=== PATIENT | female | born 1945 | race Caucasian/White ===

== ENCOUNTER 2021-06-01 10:24 | Inpatient (IN) ==
[~2021-06-01 10:24] MED LIST: CLORAZEPATE 3.75 MG TABLET PO PRN; DEXTROSE 10% 250 ML BAG IV PRN; GLUCAGON 1 MG VIAL IM PRN; MORPHINE 2 MG/1 ML SYRINGE IV PRN; NITROGLYCERIN SL 0.4 MG TABLET SL PRN
[2021-06-01] MEDS ORDERED: LACTATED RINGERS 1,000 ML IV SCH (11:00)
[2021-06-01 13:12] LABS: Basophils % 0.7 % (0.0-0.8); Eosinophils # 0.2 10*3/uL (0.0-0.87); Eosinophils % 3.8 % (0.00-10.9); Hematocrit 36.6 VOL% (35.7-47.0); Hemoglobin 11.8 GM/DL (12.0-16.0); Immature Granulocytes % 0.3 %; Immature Granulocytes Absolute 0.02 #; Lymphocytes # 1.1 10*3/uL (1.4-4.0); Mean Corpuscular HGB Conc 32.2 GM/DL (32-36); Mean Corpuscular Volume 98.7 FL (87-102); Mean Platelet Volume 10.2 FL (9.6-12.0); Monocytes % 7.9 % (1.7-12.7); Neutrophils % 69.3 % (38.7-73.9); Platelet Count 185 T/CUMM (130-400); Red Blood Count 3.71 MC/CUMM (3.8-5.5); Red Cell Distribution Width 13.1 % (9.3-17.3); White Blood Count 5.8 T/CUMM (4-12)
[2021-06-01 13:32] LABS: Albumin 3.3 G/DL (3.4-5.0); Bilirubin,Total 0.4 MG/DL (0.20-1.00); Calcium 9.2 MG/DL (8.5-10.1); Potassium 4.5 MMOL/L (3.5-5.1); Total Protein 7.1 G/DL (6.4-8.2)
[2021-06-01] MEDS: CHLORHEXIDINE 0.12% ORAL RINSE 60 ML BOTTLE SWISH/SPIT SCH ×2 (14:05→21:18)
[2021-06-01] MEDS ORDERED: SODIUM CHLORIDE 0.9% 1,000 ML IV SCH (15:00)
[2021-06-01 16:34] LABS: Arterial Base Excess iSTAT 3 MMOL/L (-2.5-2.5); Arterial Bicarbonate iSTAT 28.2 MMOL/L (20-26); Arterial O2 Saturation iSTAT 96 % (95-100); Arterial PCO2 iSTAT 45 MM HG (35-48); Arterial PO2 iSTAT 80 MM HG (80-95); Arterial Total CO2 iSTAT 30 MMO/L (23-27); Arterial pH iSTAT 7.403 (7.35-7.45)
[2021-06-01] MEDS: CHLORHEXIDINE 4% SOLN 118 ML BOTTLE TOP SCH ×2 (16:48→21:20)
[2021-06-02] MEDS: CHLORHEXIDINE 4% SOLN 118 ML BOTTLE TOP SCH (04:07)
[2021-06-02] MEDS ORDERED: PAPAVERINE 60 MG/2 ML VIAL ONE (04:19)
[2021-06-02] MEDS ORDERED: VANCOMYCIN 1,000 MG VIAL ONE (04:19)
[2021-06-02] MEDS ORDERED: VANCOMYCIN 500 MG VIAL ONE (04:19)
[2021-06-02] MEDS ORDERED: VANCOMYCIN INJ 1,000 MG in SODIUM CHLORIDE 0.9% 250 ML IV ONE (05:00)
[2021-06-02] MEDS ORDERED: SODIUM CHLORIDE 0.9% 1,000 ML IV ONE (05:28)
[2021-06-02] MEDS ORDERED: LACTATED RINGERS 1,000 ML IV ONE (05:28)
[2021-06-02] MEDS ORDERED: AMINOCAPROIC ACID 5,000 MG/20 ML VIAL ONE (05:28)
[2021-06-02] MEDS ORDERED: CALCIUM CHLORIDE 1,000 MG/10 ML VIAL IV ONE (05:28)
[2021-06-02] MEDS ORDERED: VECURONIUM 10 MG VIAL IV ONE ×3 (05:28→10:26)
[2021-06-02] MEDS ORDERED: MIDAZOLAM 10 MG/2 ML VIAL ONE ×4 (05:28→10:26)
[2021-06-02] MEDS ORDERED: ETOMIDATE 40 MG/20 ML VIAL IV ONE (05:28)
[2021-06-02] MEDS ORDERED: LIDOCAINE 2% 5 ML VIAL ONE ×3 (05:28→10:43)
[2021-06-02] MEDS ORDERED: DIAZEPAM 5 MG TABLET PO ONE (05:30)
[2021-06-02] MEDS ORDERED: FAMOTIDINE 20 MG TABLET PO ONE (05:30)
[2021-06-02] MEDS ORDERED: SUFentanil 250 MCG/5 ML AMP ONE ×2 (05:58)
[2021-06-02] MEDS ORDERED: SODIUM CHLORIDE 0.9% 250 ML IV ONE (06:08)
[2021-06-02] MEDS ORDERED: SODIUM CHLORIDE 0.9% 0 ML IV ONE (06:08)
[2021-06-02] MEDS ORDERED: HEPARIN/NACL 0.9% 2 UNITS/ML 1,000 UNIT/500 ML BAG IV ONE (06:30)
[2021-06-02] MEDS ORDERED: PHENYLEPHRINE DRIP 20 MG/250 ML PREMIX IV ONE (06:30)
[2021-06-02 07:44] LABS: ABG Base Excess 1.7 MMOL/L (-2.5-2.5); ABG PCO2 36.5 MM HG (35-48); ABG PH 7.452 (7.35-7.45); ABG TCO2 22.9 MMOL/L (23-27); Glucose Heart Surgery 109 MG/DL (74-106); Hematocrit Heart Surgery 32.6 PERCENT (37-47); Hemoglobin Heart Surgery 10.6 G/DL (12.0-16.0); Ionized Calcium Arterial 1.15 MMOL/L (1.21-1.46); PCO2 Patient Temp Arterial 36.5 MMHG; PH Patient Temp Arterial 7.452; Patient Temperature 37 CELCIUS; Potassium Heart/CVR 3.7 MMOL/L (3.5-5.1); Sodium Heart/CVR 143 MMOL/L (135-145)
[2021-06-02] MEDS ORDERED: ePHEDrine 50 MG/ML VIAL ONE (08:06)
[2021-06-02 08:55] LABS: Bacteria,Urine Occasional /HPF (Few); Mucus,Urine Occasional /LPF (Occasional); RBC,Urine 1 /HPF (0-4)
[2021-06-02 08:56] LABS: Bilirubin,Urine Negative (Negative); Blood, Urine Negative (Negative); Glucose,Urine (UA) Negative (Negative); Ketones,Urine Negative (Negative); Nitrite,Urine Negative (Negative); Protein,Urine Negative (Negative); Urine Appearance Clear (Clear); Urine Color Light Yellow (Yellow); Urine Specific Gravity 1.015 (1.001-1.035); Urine Urobilinogen 0.2 eU/dL (<2.0)
[2021-06-02 09:16] LABS: Hematocrit Heart Surgery 20.1 PERCENT (37-47); PCO2 Patient Temp Venous 30.9 MM HG; PH Patient Temp Venous 7.532; PO2 Patient Temp Venous 32.7 MM HG; Potassium Heart/CVR 4.7 MMOL/L (3.5-5.1); VBG Base Excess 3.5 MEQ/L (0-4); VBG HCO3 27.4 MEQ/L (24-28); VBG Oxygen Saturation 78.1 %; VBG PCO2 35.7 MMHG (41-51); VBG PH 7.487; VBG PO2 40.3 MMHG (17-40); VBG Total CO2 25.7 MMOL/L
[2021-06-02 09:19] LABS: Hemoglobin Heart Surgery 6.4 G/DL (12.0-16.0)
[2021-06-02 09:45] LABS: Hematocrit Heart Surgery 28.2 PERCENT (37-47); Hemoglobin Heart Surgery 9.1 G/DL (12.0-16.0); PCO2 Patient Temp Venous 29.8 MM HG; PH Patient Temp Venous 7.503; PO2 Patient Temp Venous 39.5 MM HG; Potassium Heart/CVR 4.7 MMOL/L (3.5-5.1); VBG Base Excess 0.8 MEQ/L (0-4); VBG Oxygen Saturation 87.1 %; VBG PCO2 34.4 MMHG (41-51); VBG PH 7.458; VBG PO2 48.5 MMHG (17-40); VBG Total CO2 22.4 MMOL/L
[2021-06-02] MEDS ORDERED: NITROGLYCERIN DRIP 50 MG/250 ML BOTTLE IV ONE ×2 (09:53→12:11)
[2021-06-02] MEDS ORDERED: POTASSIUM CHLORIDE RIDER 20 MEQ/100 ML PREMIX IV ONE (10:06)
[2021-06-02] MEDS ORDERED: NITROPRUSSIDE 50 MG/2 ML VIAL ONE (10:06)
[2021-06-02] MEDS ORDERED: PHENYLEPHRINE DRIP 40 MG/250 ML PREMIX IV ONE (10:06)
[2021-06-02 10:37] LABS: ABG Base Excess 0.4 MMOL/L (-2.5-2.5); ABG HCO3 24.8 MMOL/L (20-26); ABG PCO2 31.6 MM HG (35-48); ABG PH 7.477 (7.35-7.45); Glucose Heart Surgery 231 MG/DL (74-106); Hematocrit Heart Surgery 32.1 PERCENT (37-47); Hemoglobin Heart Surgery 10.4 G/DL (12.0-16.0); Ionized Calcium Arterial 1.23 MMOL/L (1.21-1.46); PCO2 Patient Temp Arterial 31.6 MMHG; PH Patient Temp Arterial 7.477; Patient Temperature 37 CELCIUS; Potassium Heart/CVR 4.4 MMOL/L (3.5-5.1); Sodium Heart/CVR 134 MMOL/L (135-145)
[2021-06-02] MEDS ORDERED: PROTAMINE SULFATE 250 MG/25 ML VIAL IV ONE (10:43)
[2021-06-02] MEDS ORDERED: methylPREDNISolone SOD SUC 1,000 MG/8 ML VIAL ONE (10:43)
[2021-06-02] MEDS ORDERED: MANNITOL 100 GM/500 ML BAG IV ONE (10:43)
[2021-06-02] MEDS ORDERED: ALBUMIN 25% 25 GM/100 ML VIAL IV ONE (10:43)
[2021-06-02] MEDS ORDERED: DEXTROSE 5% KCL 20 MEQ 20 MEQ/1,000 ML BAG IV ONE (10:43)
[2021-06-02] MEDS ORDERED: MAGNESIUM SULFATE 5 GM/10 ML VIAL IV ONE (10:43)
[2021-06-02] MEDS ORDERED: HEPARIN 10,000 UNIT/10 ML VIAL ONE (10:44)
[2021-06-02] MEDS ORDERED: SODIUM BICARBONATE 50 MEQ/50 ML VIAL IV ONE (10:44)
[2021-06-02] MEDS ORDERED: FUROSEMIDE 20 MG/2 ML VIAL ONE (10:44)
[2021-06-02] MEDS ORDERED: SEVOFLURANE 1 UNIT/15 MINUTE INH ONE (10:45)
[2021-06-02] MEDS ORDERED: SODIUM CHLORIDE 0.9% 200 ML IV ONE (10:46)
[2021-06-02] MEDS ORDERED: GLYCOPYRROLATE 0.4 MG/2 ML VIAL ONE (11:25)
[2021-06-02] MEDS ORDERED: ONDANSETRON 4 MG/2 ML VIAL IV PRN (11:28)
[2021-06-02] MEDS ORDERED: ACETAMINOPHEN 650 MG SUPP RECTAL PRN (11:28)
[2021-06-02] MEDS ORDERED: DEXTROSE 10% 250 ML BAG IV PRN ×3 (11:28→18:55)
[2021-06-02] MEDS ORDERED: POTASSIUM CHLORIDE RIDER 10 MEQ/100 ML PREMIX IV PRN (11:28)
[2021-06-02] MEDS ORDERED: LACTATED RINGERS 250 ML IV PRN (11:28)
[2021-06-02] MEDS ORDERED: MIDAZOLAM 10 MG/2 ML VIAL IV PRN (11:28)
[2021-06-02] MEDS ORDERED: INSULIN REGULAR 100 UNIT/ML IV PRN (11:28)
[2021-06-02] MEDS ORDERED: CALCIUM CHLORIDE 1,000 MG/10 ML SYRINGE IV PRN (11:28)
[2021-06-02] MEDS ORDERED: MAGNESIUM SULF RIDER 2 GM/50 ML PREMIX IV PRN (11:28)
[2021-06-02] MEDS ORDERED: INSULIN REGULAR 100 UNIT/ML IV ONE (11:28)
[2021-06-02] MEDS ORDERED: VECURONIUM 10 MG VIAL IV PRN ×2 (11:28)
[2021-06-02] MEDS ORDERED: MAGNESIUM SULF RIDER 4 GM/100 ML PREMIX IV PRN (11:28)
[2021-06-02] MEDS ORDERED: MIDAZOLAM 2 MG/2 ML VIAL IV PRN (11:28)
[2021-06-02] MEDS ORDERED: NITROPRUSSIDE 100 MG in DEXTROSE 5% 250 ML IV PRN (11:28)
[2021-06-02] MEDS ORDERED: INSULIN REGULAR DRIP 100 ML IV SCH (11:30)
[2021-06-02 11:42] LABS: ABG Base Excess -0.2 MMOL/L (-2.5-2.5); ABG HCO3 24.3 MMOL/L (20-26); ABG Oxygen Saturation 98.3 % (95-100); ABG PCO2 36.8 MM HG (35-48); ABG PH 7.421 (7.35-7.45); ABG TCO2 21.1 MMOL/L (23-27); Glucose Heart Surgery 190 MG/DL (74-106); Hematocrit Heart Surgery 37.2 PERCENT (37-47); Hemoglobin Heart Surgery 12.1 G/DL (12.0-16.0); Potassium Heart/CVR 3.6 MMOL/L (3.5-5.1)
[2021-06-02] MEDS: LACTATED RINGERS 1,000 ML IV PRN ×4 (11:45→15:31)
[2021-06-02 11:46] LABS: Basophils % 0.4 % (0.0-0.8); Eosinophils # 0.1 10*3/uL (0.0-0.87); Eosinophils % 1.3 % (0.00-10.9); Hematocrit 33.1 VOL% (35.7-47.0); Hemoglobin 11.4 GM/DL (12.0-16.0); Immature Granulocytes % 0.4 %; Immature Granulocytes Absolute 0.03 #; Lymphocytes # 0.7 10*3/uL (1.4-4.0); Lymphocytes % 9.7 % (21.3-54.2); Mean Corpuscular HGB Conc 34.4 GM/DL (32-36); Mean Corpuscular Volume 91.7 FL (87-102); Mean Platelet Volume 10.6 FL (9.6-12.0); Monocytes % 3.9 % (1.7-12.7); Neutrophils % 84.3 % (38.7-73.9); Platelet Count 127 T/CUMM (130-400); Red Blood Count 3.61 MC/CUMM (3.8-5.5); Red Cell Distribution Width 14.6 % (9.3-17.3); White Blood Count 6.9 T/CUMM (4-12)
[2021-06-02 11:54] LABS: INR 1.1; PT Patient Result 12.4 SECS (10.5-12.0); Partial Thromboplastin Time 28.2 SECS (23.8-32.1)
[2021-06-02] MEDS: SODIUM CHLORIDE 0.45% 1,000 ML IV SCH ×2 (12:01)
[2021-06-02] MEDS: POTASSIUM CHLORIDE RIDER 20 MEQ/100 ML PREMIX IV PRN (12:02)
[2021-06-02 12:06] LABS: CKMB % 8.2 %
[2021-06-02] MEDS: PHENYLEPHRINE DRIP 40 MG/250 ML PREMIX IV PRN (12:10)
[2021-06-02 12:12] LABS: Albumin 2.9 G/DL (3.4-5.0); Bilirubin,Total 1.5 MG/DL (0.20-1.00); Calcium 9.1 MG/DL (8.5-10.1); Osmolality,Calculated 284.7 MOS/KG (273-304); Potassium 3.6 MMOL/L (3.5-5.1); Total Protein 5.7 G/DL (6.4-8.2)
[2021-06-02 12:17] LABS: High Sensitive Troponin I* 4209.6 ng/L (0-54)
[2021-06-02] MEDS: NITROGLYCERIN DRIP 50 MG/250 ML BOTTLE IV PRN (12:30)
[2021-06-02 13:30] LABS: VBG Base Excess -0.4 MEQ/L (0-4); VBG HCO3 23.3 MEQ/L (24-28); VBG Oxygen Saturation 58.5 %; VBG PCO2 42.2 MMHG (41-51); VBG PH 7.377; VBG PO2 32.7 MMHG (17-40); VBG Total CO2 22.3 MMOL/L
[2021-06-02] MEDS: CHLORHEXIDINE 0.12% ORAL RINSE 60 ML BOTTLE SWISH/SPIT SCH ×2 (14:01→21:34)
[2021-06-02 14:11] LABS: ABG Base Excess -2.2 MMOL/L (-2.5-2.5); ABG HCO3 21.2 MMOL/L (20-26); ABG Oxygen Saturation 98.2 % (95-100); ABG PH 7.439 (7.35-7.45); ABG PO2 132.1 MM HG (80-95); ABG TCO2 22.2 MMOL/L (23-27); Glucose Heart Surgery 150 MG/DL (74-106)
[2021-06-02] MEDS: ALBUMIN 5% 12.5 GM/250 ML VIAL IV PRN ×3 (15:30→17:07)
[2021-06-02 16:36] LABS: ABG Base Excess -1.6 MMOL/L (-2.5-2.5); ABG HCO3 22.1 MMOL/L (20-26); ABG Oxygen Saturation 97.9 % (95-100); ABG PCO2 33.4 MM HG (35-48); ABG PH 7.438 (7.35-7.45); ABG PO2 130.5 MM HG (80-95); ABG TCO2 23.1 MMOL/L (23-27); Glucose Heart Surgery 167 MG/DL (74-106); Hemoglobin Heart Surgery 10.5 G/DL (12.0-16.0)
[2021-06-02] MEDS: DOBUTamine 500 MG/250 ML PREMIX IV SCH (18:07)
[2021-06-02 18:25] LABS: ABG Base Excess -1.3 MMOL/L (-2.5-2.5); ABG HCO3 23.3 MMOL/L (20-26); ABG Oxygen Saturation 96.5 % (95-100); ABG PCO2 38.3 MM HG (35-48); ABG PH 7.392 (7.35-7.45); ABG PO2 85.8 MM HG (80-95); ABG TCO2 21.1 MMOL/L (23-27); Glucose Heart Surgery 212 MG/DL (74-106); Hematocrit Heart Surgery 32.4 PERCENT (37-47); Hemoglobin Heart Surgery 10.5 G/DL (12.0-16.0); Potassium Heart/CVR 4.3 MMOL/L (3.5-5.1)
[2021-06-02] MEDS ORDERED: GLUCAGON 1 MG VIAL IM PRN (18:50)
[2021-06-02] MEDS: INSULIN REGULAR 100 UNIT/ML SUBCUT SCH ×2 (19:04→21:59)
[2021-06-02 20:08] LABS: CKMB % 9.5 %
[2021-06-02 20:17] LABS: High Sensitive Troponin I* 12060.8 ng/L (0-54)
[2021-06-02] MEDS: VANCOMYCIN INJ 500 MG in SODIUM CHLORIDE 0.9% 250 ML IV SCH (22:56)
[2021-06-02] MEDS: MORPHINE 10 MG/1 ML VIAL IV PRN (23:38)
[2021-06-03] MEDS ORDERED: FUROSEMIDE 40 MG/4 ML VIAL IV ONE ×4 (00:13→23:55)
[2021-06-03] MEDS: LACTATED RINGERS 1,000 ML IV PRN (02:01)
[2021-06-03 02:09] LABS: ABG Base Excess -3.1 MMOL/L (-2.5-2.5); ABG HCO3 21.8 MMOL/L (20-26); ABG PCO2 40.1 MM HG (35-48); ABG PH 7.352 (7.35-7.45); ABG PO2 85.5 MM HG (80-95); ABG TCO2 20.3 MMOL/L (23-27); Glucose Heart Surgery 215 MG/DL (74-106); Hematocrit Heart Surgery 31.6 PERCENT (37-47); Hemoglobin Heart Surgery 10.2 G/DL (12.0-16.0); Potassium Heart/CVR 3.7 MMOL/L (3.5-5.1)
[2021-06-03] MEDS: POTASSIUM CHLORIDE RIDER 20 MEQ/100 ML PREMIX IV PRN ×3 (02:21→04:19)
[2021-06-03] MEDS: INSULIN REGULAR 100 UNIT/ML SUBCUT SCH ×6 (02:26→22:52)
[2021-06-03 04:10] LABS: ABG Base Excess -3.9 MMOL/L (-2.5-2.5); ABG HCO3 21.1 MMOL/L (20-26); ABG Oxygen Saturation 96.7 % (95-100); ABG PCO2 39.5 MM HG (35-48); ABG PH 7.343 (7.35-7.45); ABG PO2 91.6 MM HG (80-95); ABG TCO2 19.6 MMOL/L (23-27); Glucose Heart Surgery 205 MG/DL (74-106); Hematocrit Heart Surgery 31.3 PERCENT (37-47); Hemoglobin Heart Surgery 10.1 G/DL (12.0-16.0); Potassium Heart/CVR 4.3 MMOL/L (3.5-5.1)
[2021-06-03 04:18] LABS: Basophils % 0.1 % (0.0-0.8); Hematocrit 29.4 VOL% (35.7-47.0); Hemoglobin 9.8 GM/DL (12.0-16.0); Immature Granulocytes % 0.3 %; Immature Granulocytes Absolute 0.03 #; Lymphocytes # 0.5 10*3/uL (1.4-4.0); Lymphocytes % 5.5 % (21.3-54.2); Mean Corpuscular HGB Conc 33.3 GM/DL (32-36); Mean Corpuscular Volume 93.3 FL (87-102); Mean Platelet Volume 11.1 FL (9.6-12.0); Monocytes % 2.6 % (1.7-12.7); Neutrophils % 91.5 % (38.7-73.9); Platelet Count 112 T/CUMM (130-400); Red Blood Count 3.15 MC/CUMM (3.8-5.5); Red Cell Distribution Width 15.6 % (9.3-17.3); White Blood Count 8.7 T/CUMM (4-12)
[2021-06-03 04:35] LABS: Albumin 3.2 G/DL (3.4-5.0); Bilirubin,Direct 0.14 MG/DL (0.0-0.20); Bilirubin,Total 0.8 MG/DL (0.20-1.00); Calcium 7.9 MG/DL (8.5-10.1); Osmolality,Calculated 289.4 MOS/KG (273-304); Potassium 4.5 MMOL/L (3.5-5.1); Total Protein 5.3 G/DL (6.4-8.2)
[2021-06-03 04:40] LABS: Band Neutrophils 1 % (0-10); Hypochromia 1+; Lymphocytes 6 % (20-55); Microcytosis 1+; Segmented Neutrophils 92 % (50-85); Total Cells Counted 100
[2021-06-03 04:50] LABS: CKMB % 11.8 %
[2021-06-03 04:53] LABS: High Sensitive Troponin I* 39804.4 ng/L (0-54)
[2021-06-03 06:17] LABS: ABG Base Excess -5.8 MMOL/L (-2.5-2.5); ABG HCO3 19.6 MMOL/L (20-26); ABG Oxygen Saturation 96.1 % (95-100); ABG PCO2 44.6 MM HG (35-48); ABG PH 7.278 (7.35-7.45); ABG PO2 92.8 MM HG (80-95); ABG TCO2 19.2 MMOL/L (23-27); Glucose Heart Surgery 185 MG/DL (74-106); Hematocrit Heart Surgery 31.6 PERCENT (37-47); Hemoglobin Heart Surgery 10.2 G/DL (12.0-16.0); Potassium Heart/CVR 4.5 MMOL/L (3.5-5.1)
[2021-06-03 07:31] LABS: ABG Base Excess -5.9 MMOL/L (-2.5-2.5); ABG HCO3 19.5 MMOL/L (20-26); ABG Oxygen Saturation 96.8 % (95-100); ABG PCO2 44.2 MM HG (35-48); ABG PH 7.278 (7.35-7.45); ABG PO2 98.3 MM HG (80-95); Glucose Heart Surgery 175 MG/DL (74-106); Hematocrit Heart Surgery 31.9 PERCENT (37-47); Hemoglobin Heart Surgery 10.3 G/DL (12.0-16.0); Potassium Heart/CVR 4.3 MMOL/L (3.5-5.1)
[2021-06-03] MEDS: MORPHINE 10 MG/1 ML VIAL IV PRN ×2 (07:46→23:16)
[2021-06-03] MEDS: CHLORHEXIDINE 0.12% ORAL RINSE 60 ML BOTTLE SWISH/SPIT SCH (09:11)
[2021-06-03] MEDS: SODIUM CHLORIDE 0.45% 1,000 ML IV SCH ×2 (10:46)
[2021-06-03] MEDS: VANCOMYCIN INJ 500 MG in SODIUM CHLORIDE 0.9% 250 ML IV SCH (10:47)
[2021-06-03] MEDS ORDERED: oxyCODONE/ACETAMINOPHEN 5-325 MG TABLET PO PRN (10:49)
[2021-06-03] MEDS: VANCOMYCIN INJ 500 MG in SODIUM CHLORIDE 0.9% 100 ML IV SCH (11:16)
[2021-06-03] MEDS: NITROGLYCERIN DRIP 50 MG/250 ML BOTTLE IV PRN (12:16)
[2021-06-03] MEDS: METOPROLOL SUCCINATE XL 25 MG TABLET PO SCH (13:52)
[2021-06-03] MEDS: ISOSORBIDE MONONITRATE 30 MG TABLET PO SCH (13:52)
[2021-06-03 14:17] LABS: CKMB % 11.7 %
[2021-06-03 14:28] LABS: High Sensitive Troponin I* 66692.6 ng/L (0-54)
[2021-06-03 20:11] LABS: ABG Base Excess -7.1 MMOL/L (-2.5-2.5); ABG HCO3 18.5 MMOL/L (20-26); ABG Oxygen Saturation 85.1 % (95-100); ABG PO2 61.3 MM HG (80-95); ABG TCO2 22.9 MMOL/L (23-27); Glucose Heart Surgery 176 MG/DL (74-106); Hematocrit Heart Surgery 32.8 PERCENT (37-47); Hemoglobin Heart Surgery 10.6 G/DL (12.0-16.0)
[2021-06-03 20:14] LABS: ABG PH 7.113 (7.35-7.45)
[2021-06-03 20:15] LABS: ABG PCO2 75.3 MM HG (35-48)
[2021-06-03] MEDS ORDERED: FUROSEMIDE 100 MG/10 ML VIAL IV ONE (20:31)
[2021-06-03] MEDS ORDERED: ETOMIDATE 20 MG/10 ML VIAL IV ONE ×2 (20:35→20:42)
[2021-06-03] MEDS ORDERED: ROCURONIUM 100 MG/10 ML VIAL IV ONE (20:36)
[2021-06-03] MEDS ORDERED: VECURONIUM 10 MG VIAL IV ONE (20:43)
[2021-06-03] MEDS ORDERED: EPINEPHrine 1 MG/10 ML SYRINGE ONE (20:53)
[2021-06-03] MEDS ORDERED: SODIUM BICARBONATE 50 MEQ/50 ML SYRINGE IV ONE (21:01)
[2021-06-03 21:26] LABS: ABG Base Excess -2.9 MMOL/L (-2.5-2.5); ABG Oxygen Saturation 99.7 % (95-100); ABG PH 7.232 (7.35-7.45); ABG TCO2 23.8 MMOL/L (23-27)
[2021-06-03 21:35] LABS: Basophils % 0.1 % (0.0-0.8); Hematocrit 31.6 VOL% (35.7-47.0); Hemoglobin 10.1 GM/DL (12.0-16.0); Immature Granulocytes % 0.5 %; Immature Granulocytes Absolute 0.06 #; Lymphocytes # 0.8 10*3/uL (1.4-4.0); Lymphocytes % 6.2 % (21.3-54.2); Mean Corpuscular Volume 97.5 FL (87-102); Mean Platelet Volume 11.3 FL (9.6-12.0); Monocytes % 8.5 % (1.7-12.7); Neutrophils % 84.7 % (38.7-73.9); Platelet Count 127 T/CUMM (130-400); Red Blood Count 3.24 MC/CUMM (3.8-5.5); Red Cell Distribution Width 15.4 % (9.3-17.3); White Blood Count 12.8 T/CUMM (4-12)
[2021-06-03 21:49] LABS: Calcium 7.4 MG/DL (8.5-10.1); Osmolality,Calculated 295.5 MOS/KG (273-304); Potassium 5.2 MMOL/L (3.5-5.1)
[2021-06-03] MEDS: FUROSEMIDE INJ 100 MG in SODIUM CHLORIDE 0.9% 90 ML IV SCH (22:49)
[2021-06-04] MEDS: VANCOMYCIN INJ 500 MG in SODIUM CHLORIDE 0.9% 100 ML IV SCH ×2 (00:31→10:37)
[2021-06-04] MEDS: DOBUTamine 500 MG/250 ML PREMIX IV SCH ×2 (00:45→23:44)
[2021-06-04] MEDS: CHLORHEXIDINE 0.12% ORAL RINSE 60 ML BOTTLE SWISH/SPIT SCH ×3 (00:47→21:57)
[2021-06-04 01:04] LABS: ABG Base Excess -2.5 MMOL/L (-2.5-2.5); ABG HCO3 22.4 MMOL/L (20-26); ABG Oxygen Saturation 99.5 % (95-100); ABG PCO2 38.2 MM HG (35-48); ABG PH 7.376 (7.35-7.45); ABG TCO2 20.2 MMOL/L (23-27); Glucose Heart Surgery 180 MG/DL (74-106); Hematocrit Heart Surgery 33.6 PERCENT (37-47); Hemoglobin Heart Surgery 10.9 G/DL (12.0-16.0); Potassium Heart/CVR 4.3 MMOL/L (3.5-5.1)
[2021-06-04] MEDS: INSULIN REGULAR 100 UNIT/ML SUBCUT SCH ×6 (01:36→21:57)
[2021-06-04] MEDS: FUROSEMIDE INJ 100 MG in SODIUM CHLORIDE 0.9% 90 ML IV SCH ×4 (03:59→21:05)
[2021-06-04 04:31] LABS: ABG Base Excess -1.1 MMOL/L (-2.5-2.5); ABG HCO3 23.5 MMOL/L (20-26); ABG Oxygen Saturation 99.7 % (95-100); ABG PCO2 31.4 MM HG (35-48); ABG PH 7.454 (7.35-7.45); ABG TCO2 19.5 MMOL/L (23-27); Glucose Heart Surgery 126 MG/DL (74-106); Hematocrit Heart Surgery 36.2 PERCENT (37-47); Hemoglobin Heart Surgery 11.7 G/DL (12.0-16.0); Potassium Heart/CVR 3.7 MMOL/L (3.5-5.1)
[2021-06-04 04:38] LABS: Basophils % 0.3 % (0.0-0.8); Hematocrit 33.9 VOL% (35.7-47.0); Hemoglobin 11.5 GM/DL (12.0-16.0); Immature Granulocytes % 0.3 %; Immature Granulocytes Absolute 0.01 #; Lymphocytes # 0.3 10*3/uL (1.4-4.0); Lymphocytes % 10.1 % (21.3-54.2); Mean Corpuscular HGB Conc 33.9 GM/DL (32-36); Mean Corpuscular Volume 92.1 FL (87-102); Mean Platelet Volume 11.3 FL (9.6-12.0); Monocytes % 13.3 % (1.7-12.7); Platelet Count 90 T/CUMM (130-400); Red Blood Count 3.68 MC/CUMM (3.8-5.5); Red Cell Distribution Width 15.1 % (9.3-17.3); White Blood Count 3.2 T/CUMM (4-12)
[2021-06-04 05:06] LABS: Band Neutrophils 1 % (0-10); Lymphocytes 12 % (20-55); Platelet Estimate Decreased; Segmented Neutrophils 75 % (50-85); Total Cells Counted 100
[2021-06-04 05:09] LABS: Albumin 2.9 G/DL (3.4-5.0); Bilirubin,Direct 0.29 MG/DL (0.0-0.20); Bilirubin,Total 0.9 MG/DL (0.20-1.00); Osmolality,Calculated 290.5 MOS/KG (273-304); Potassium 3.7 MMOL/L (3.5-5.1); Total Protein 5.8 G/DL (6.4-8.2)
[2021-06-04] MEDS: MORPHINE 10 MG/1 ML VIAL IV PRN (06:06)
[2021-06-04] MEDS ORDERED: POTASSIUM CHLORIDE 20 MEQ TABLET PO ONE (07:18)
[2021-06-04] MEDS: METOPROLOL SUCCINATE XL 25 MG TABLET PO SCH (08:12)
[2021-06-04] MEDS: ISOSORBIDE MONONITRATE 30 MG TABLET PO SCH (08:12)
[2021-06-04] MEDS: DEXMEDETOMIDINE 200 MCG in SODIUM CHLORIDE 0.9% 48 ML IV PRN ×3 (08:13→19:20)
[2021-06-04] MEDS: SODIUM CHLORIDE 0.45% 1,000 ML IV SCH ×2 (08:18→10:58)
[2021-06-04] MEDS ORDERED: MORPHINE 2 MG/1 ML SYRINGE IV PRN (10:17)
[2021-06-04] MEDS: ALBUMIN 5% 12.5 GM/250 ML VIAL IV PRN ×2 (14:36→15:09)
[2021-06-04] MEDS: SODIUM CHLORIDE 0.9% 1,000 ML IV SCH (15:30)
[2021-06-04 17:56] VITALS: BP 119/65
[2021-06-05] MEDS: DOBUTamine 500 MG/250 ML PREMIX IV SCH (02:50)
[2021-06-05] MEDS: FUROSEMIDE INJ 100 MG in SODIUM CHLORIDE 0.9% 90 ML IV SCH (03:05)
[2021-06-05] MEDS: PHENYLEPHRINE DRIP 40 MG/250 ML PREMIX IV PRN (03:08)
[2021-06-05 05:09] LABS: Basophils % 0.6 % (0.0-0.8); Hematocrit 33.3 VOL% (35.7-47.0); Hemoglobin 10.6 GM/DL (12.0-16.0); Immature Granulocytes % 2.6 %; Immature Granulocytes Absolute 0.08 #; Lymphocytes # 0.2 10*3/uL (1.4-4.0); Lymphocytes % 7.4 % (21.3-54.2); Mean Corpuscular HGB Conc 31.8 GM/DL (32-36); Mean Corpuscular Volume 97.1 FL (87-102); Mean Platelet Volume 12.5 FL (9.6-12.0); Monocytes % 5.2 % (1.7-12.7); Neutrophils % 84.2 % (38.7-73.9); Red Blood Count 3.43 MC/CUMM (3.8-5.5); White Blood Count 3.1 T/CUMM (4-12)
[2021-06-05 05:10] LABS: Platelet Count 85 T/CUMM (130-400)
[2021-06-05 05:42] LABS: Albumin 2.4 G/DL (3.4-5.0); Bilirubin,Direct 0.46 MG/DL (0.0-0.20); Bilirubin,Total 1.3 MG/DL (0.20-1.00); Osmolality,Calculated 298.4 MOS/KG (273-304); Potassium 5.4 MMOL/L (3.5-5.1); Total Protein 5.3 G/DL (6.4-8.2)
[2021-06-05 06:05] LABS: Band Neutrophils 10 % (0-10); Hypochromia Slight; Lymphocytes 15 % (20-55); Microcytosis Slight; Myelocytes 3 %; Platelet Estimate Decreased; Segmented Neutrophils 68 % (50-85); Total Cells Counted 100
[2021-06-05] MEDS ORDERED: DILTIAZEM 25 MG/5 ML VIAL IV ONE (07:39)
[2021-06-05] MEDS ORDERED: DILTIAZEM 50 MG/10 ML VIAL IV ONE (07:40)
[2021-06-05] MEDS: DEXMEDETOMIDINE 200 MCG in SODIUM CHLORIDE 0.9% 48 ML IV PRN (07:45)
[2021-06-05] MEDS ORDERED: DEXTROSE 50% 25 GM/50 ML SYRINGE IV ONE ×4 (07:47→16:19)
[2021-06-05] MEDS: ALBUMIN 5% 12.5 GM/250 ML VIAL IV PRN (07:50)
[2021-06-05] MEDS: INSULIN REGULAR 100 UNIT/ML SUBCUT SCH ×3 (07:51→16:47)
[2021-06-05] MEDS: PHENYLEPHRINE INJ 160 MG in SODIUM CHLORIDE 0.9% 234 ML IV PRN ×2 (08:15→16:21)
[2021-06-05] MEDS: SODIUM CHLORIDE 0.9% 1,000 ML IV SCH (08:28)
[2021-06-05] MEDS: CHLORHEXIDINE 0.12% ORAL RINSE 60 ML BOTTLE SWISH/SPIT SCH (08:28)
[2021-06-05] MEDS ORDERED: AMIODARONE INJ 450 MG in DEXTROSE 5% 241 ML IV SCH ×2 (09:00→15:00)
[2021-06-05] MEDS ORDERED: DILTIAZEM INJ 100 MG in SODIUM CHLORIDE 0.9% 100 ML IV SCH (09:00)
[2021-06-05] MEDS: ISOSORBIDE MONONITRATE 30 MG TABLET PO SCH (09:02)
[2021-06-05] MEDS ORDERED: SODIUM BICARBONATE 50 MEQ/50 ML VIAL IV ONE ×5 (09:18→16:00)
[2021-06-05 09:20] LABS: Arterial Base Excess iSTAT -19 MMOL/L (-2.5-2.5); Arterial Bicarbonate iSTAT 10.7 MMOL/L (20-26); Arterial O2 Saturation iSTAT 96 % (95-100); Arterial PCO2 iSTAT 40 MM HG (35-48); Arterial PO2 iSTAT 115 MM HG (80-95); Arterial Total CO2 iSTAT 12 MMO/L (23-27); Arterial pH iSTAT 7.041 (7.35-7.45)
[2021-06-05] MEDS ORDERED: AMIODARONE INJ 150 MG in DEXTROSE 5% 100 ML IV ONE (09:35)
[2021-06-05] MEDS ORDERED: AMIODARONE 150 MG/3 ML VIAL ONE (09:44)
[2021-06-05 11:35] LABS: ABG Base Excess -22.9 MMOL/L (-2.5-2.5); ABG HCO3 7.5 MMOL/L (20-26); ABG Oxygen Saturation 94.6 % (95-100); ABG PCO2 32.9 MM HG (35-48); ABG PO2 105.2 MM HG (80-95); ABG TCO2 8.5 MMOL/L (23-27); Glucose Heart Surgery 123 MG/DL (74-106); Hemoglobin Heart Surgery 9.8 G/DL (12.0-16.0); Potassium Heart/CVR 5.9 MMOL/L (3.5-5.1)
[2021-06-05 11:37] LABS: ABG PH 6.974 (7.35-7.45)
[2021-06-05] MEDS ORDERED: SODIUM BICARB INJ 150 MEQ in DEXTROSE 5% 1,000 ML IV SCH (12:00)
[2021-06-05] MEDS ORDERED: SODIUM BICARBONATE 50 MEQ/50 ML SYRINGE IV ONE ×3 (12:11→15:57)
[2021-06-05 15:37] LABS: ABG Base Excess -24.6 MMOL/L (-2.5-2.5); ABG Oxygen Saturation 91.4 % (95-100); ABG PCO2 28.8 MM HG (35-48); ABG TCO2 6.4 MMOL/L (23-27)
[2021-06-05 15:40] LABS: ABG PH 6.952 (7.35-7.45)
[2021-06-05 16:01] LABS: Calcium 7.3 MG/DL (8.5-10.1); Osmolality,Calculated 303.1 MOS/KG (273-304)
[2021-06-05 16:06] LABS: Potassium 7.2 MMOL/L (3.5-5.1)
[2021-06-05] MEDS ORDERED: SODIUM POLYSTYRENE SULFATE 15 GM/60 ML BOTTLE RECTAL ONE (16:19)
[2021-06-05 16:30] LABS: Basophils % 0.6 % (0.0-0.8); Eosinophils % 0.2 % (0.00-10.9); Hematocrit 31.5 VOL% (35.7-47.0); Hemoglobin 8.9 GM/DL (12.0-16.0); Immature Granulocytes % 0.9 %; Immature Granulocytes Absolute 0.04 #; Lymphocytes # 0.5 10*3/uL (1.4-4.0); Lymphocytes % 11.2 % (21.3-54.2); Mean Corpuscular HGB Conc 28.3 GM/DL (32-36); Mean Platelet Volume 12.7 FL (9.6-12.0); Monocytes % 5.4 % (1.7-12.7); Neutrophils % 81.7 % (38.7-73.9); Platelet Count 59 T/CUMM (130-400); Red Blood Count 2.89 MC/CUMM (3.8-5.5); Red Cell Distribution Width 15.4 % (9.3-17.3); White Blood Count 4.6 T/CUMM (4-12)
[2021-06-05] MEDS ORDERED: SODIUM ZIRCONIUM CYCLOSILICATE 10 GM PACK PO SCH (16:30)
[2021-06-05 17:33] LABS: Band Neutrophils 5 % (0-10); Hypochromia 1+; Lymphocytes 37 % (20-55); Metamyelocytes 5 %; Microcytosis Slight; Nucleated Red Blood Cells 1 (0-5); Polychromasia Slight; Segmented Neutrophils 36 % (50-85); Total Cells Counted 100
[2021-06-05 17:34] LABS: Atypical Lymphocytes 1+; Platelet Estimate Decreased
== END 2021-06-05 18:50 | disposition expired | DRG 235 ==
LOC: N.TELES 12:19 → N.CVR 06-02 10:50 → N.ICU 06-03 14:30